=== PATIENT | female | born 1965 | race Caucasian/White ===

== ENCOUNTER 2017-12-21 09:45 | Outpatient (CLI) | payer OTHER ==
[~2017-12-21 09:45] MED LIST: MAGN400C PO; MULT-1179 PO
[2017-12-21 12:49] LABS: BASOPHILS # (AUTO) 0.1 X10'3 (0-0.2); BASOPHILS % (AUTO) 0.7 % (0-1); EOSINOPHILS # (AUTO) 0.1 X10'3 (0-0.9); EOSINOPHILS % (AUTO) 0.8 % (0-6); HEMATOCRIT 38.1 % (35.0-45.0); HEMOGLOBIN 13.3 g/dl (12.0-16.0); LYMPHOCYTES # (AUTO) 2.2 X10'3 (1.1-4.8); LYMPHOCYTES % (AUTO) 25.9 % (21-51); MEAN CORPUSCULAR HGB CONC 34.8 % (33.0-36.5); MEAN CORPUSCULAR VOLUME 91.9 FL (78-98); MEAN PLATELET VOLUME 8.4 FL (7.4-10.4); MONOCYTES # (AUTO) 0.5 X10'3 (0-0.9); NEUTROPHILS # (AUTO) 5.6 X10'3 (1.8-7.7); NEUTROPHILS % (AUTO) 66.6 % (42-75); PLATELET COUNT 289 X10'3 (140-440); RED BLOOD COUNT 4.14 X10'6 (4.20-5.60); RED CELL DISTRIBUTION WIDTH 12.9 % (11.5-14.5); WHITE BLOOD COUNT 8.5 X10'3 (4.5-11.0)
[2017-12-21 13:06] LABS: ALANINE AMINOTRANSFERASE 24 U/L (12-78); ALBUMIN 4.2 G/DL (3.4-5.0); ALBUMIN/GLOBULIN RATIO 1.1 (1.1-1.5); ALKALINE PHOSPHATASE 63 IU/L (46-116); ANION GAP 9 (8-16); ASPARTATE AMINO TRANSFERASE 22 U/L (10-37); BILIRUBIN,TOTAL 0.8 MG/DL (0.1-1.0); BLOOD UREA NITROGEN 19 MG/DL (7-18); BUN/CREATININE RATIO 22.4 (6.6-38.0); CALCIUM 9.3 MG/DL (8.5-10.1); CHLORIDE 103 MMOL/L (99-107); CREATININE 0.85 MG/DL (0.40-0.90); GLUCOSE 92 MG/DL (70-104); POTASSIUM 4.2 MMOL/L (3.5-5.1); SODIUM 139 MMOL/L (135-145); TOTAL CARBON DIOXIDE 27.5 MMOL/L (24-32); TOTAL PROTEIN 7.9 G/DL (6.4-8.2); eGFR 70 ML/MIN
== END 2017-12-21 23:59 | disposition home or self-care (01) ==
LOC: LAB 09:45
PROVIDERS: ATTEND Phlebology
DX: Z01.812 Encounter for preprocedural laboratory examination (principal); C50.311 Malignant neoplasm of lower-inner quadrant of right female breast
CPT/HCPCS: 36415; 71046; 80053; 85025

== ENCOUNTER 2017-12-25 08:41 | Outpatient (CLI) | payer OTHER | END 2017-12-25 23:59 | disposition home or self-care (01) | LOC: RAD 08:41 | PROVIDERS: ATTEND Phlebology | DX: C50.311 Malignant neoplasm of lower-inner quadrant of right female breast (principal) | CPT/HCPCS: 78306; A9503 ==

== ENCOUNTER 2018-01-21 12:11 | Outpatient (CLI) | payer OTHER ==
[2018-01-21 13:00] LABS: PARTIAL THROMBOPLASTIN TIME 25 SECONDS (22-32); PROTHROMBIN TIME 10.2 SECONDS (9.0-12.0)
[2018-01-21 13:08] LABS: ALANINE AMINOTRANSFERASE 31 U/L (12-78); ALBUMIN 4.2 G/DL (3.4-5.0); ALBUMIN/GLOBULIN RATIO 1.2 (1.1-1.5); ALKALINE PHOSPHATASE 58 IU/L (46-116); ANION GAP 7 (8-16); ASPARTATE AMINO TRANSFERASE 23 U/L (10-37); BILIRUBIN,TOTAL 0.6 MG/DL (0.1-1.0); BLOOD UREA NITROGEN 12 MG/DL (7-18); CALCIUM 9.1 MG/DL (8.5-10.1); CHLORIDE 103 MMOL/L (99-107); CREATININE 0.86 MG/DL (0.40-0.90); GLUCOSE 93 MG/DL (70-104); POTASSIUM 3.6 MMOL/L (3.5-5.1); SODIUM 139 MMOL/L (135-145); TOTAL CARBON DIOXIDE 29.2 MMOL/L (24-32); TOTAL PROTEIN 7.7 G/DL (6.4-8.2); eGFR 69 ML/MIN
[2018-01-21 13:20] LABS: BASOPHILS # (AUTO) 0.1 X10'3 (0-0.2); BASOPHILS % (AUTO) 0.9 % (0-1); EOSINOPHILS # (AUTO) 0.1 X10'3 (0-0.9); EOSINOPHILS % (AUTO) 1.8 % (0-6); HEMOGLOBIN 12.9 g/dl (12.0-16.0); LYMPHOCYTES # (AUTO) 2.7 X10'3 (1.1-4.8); LYMPHOCYTES % (AUTO) 41.4 % (21-51); MEAN CORPUSCULAR HEMOGLOBIN 31.9 PG (27.0-31.0); MEAN CORPUSCULAR HGB CONC 34.8 % (33.0-36.5); MEAN CORPUSCULAR VOLUME 91.7 FL (78-98); MEAN PLATELET VOLUME 8.5 FL (7.4-10.4); MONOCYTES # (AUTO) 0.5 X10'3 (0-0.9); MONOCYTES % (AUTO) 7.6 % (2-12); NEUTROPHILS # (AUTO) 3.2 X10'3 (1.8-7.7); NEUTROPHILS % (AUTO) 48.3 % (42-75); PLATELET COUNT 270 X10'3 (140-440); RED BLOOD COUNT 4.04 X10'6 (4.20-5.60); RED CELL DISTRIBUTION WIDTH 12.8 % (11.5-14.5); WHITE BLOOD COUNT 6.6 X10'3 (4.5-11.0)
== END 2018-01-21 23:59 | disposition home or self-care (01) ==
LOC: LAB 12:11
PROVIDERS: ATTEND Family Medicine
DX: Z00.01 Encounter for general adult medical examination with abnormal findings (principal)
CPT/HCPCS: 36415; 80053; 85025; 85610; 85730

== ENCOUNTER 2018-04-03 07:51 | Outpatient (CLI) | payer OTHER ==
[2018-04-03 08:41] LABS: ALANINE AMINOTRANSFERASE 23 U/L (12-78); ALBUMIN 4.2 G/DL (3.4-5.0); ALBUMIN/GLOBULIN RATIO 1.3 (1.1-1.5); ALKALINE PHOSPHATASE 62 IU/L (46-116); ANION GAP 12 (8-16); ASPARTATE AMINO TRANSFERASE 20 U/L (10-37); BILIRUBIN,TOTAL 0.5 MG/DL (0.1-1.0); BLOOD UREA NITROGEN 12 MG/DL (7-18); BUN/CREATININE RATIO 14.6 (6.6-38.0); CALCIUM 8.9 MG/DL (8.5-10.1); CHLORIDE 100 MMOL/L (99-107); CREATININE 0.82 MG/DL (0.40-0.90); GLUCOSE 97 MG/DL (70-104); MAGNESIUM 1.6 MG/DL (1.5-2.4); POTASSIUM 4.1 MMOL/L (3.5-5.1); SODIUM 139 MMOL/L (135-145); TOTAL CARBON DIOXIDE 27.2 MMOL/L (24-32); TOTAL PROTEIN 7.5 G/DL (6.4-8.2); eGFR 73 ML/MIN
[2018-04-03 11:13] LABS: BASOPHILS % (AUTO) 0.5 % (0-1); EOSINOPHILS # (AUTO) 0.1 X10'3 (0-0.9); EOSINOPHILS % (AUTO) 1.1 % (0-6); HEMATOCRIT 35.9 % (35.0-45.0); HEMOGLOBIN 12.3 g/dl (12.0-16.0); LYMPHOCYTES % (AUTO) 29.5 % (21-51); MEAN CORPUSCULAR HEMOGLOBIN 29.4 PG (27.0-31.0); MEAN CORPUSCULAR HGB CONC 34.2 % (33.0-36.5); MEAN CORPUSCULAR VOLUME 85.9 FL (78-98); MEAN PLATELET VOLUME 8.2 FL (7.4-10.4); MONOCYTES # (AUTO) 0.6 X10'3 (0-0.9); MONOCYTES % (AUTO) 8.2 % (2-12); NEUTROPHILS # (AUTO) 4.1 X10'3 (1.8-7.7); NEUTROPHILS % (AUTO) 60.7 % (42-75); PLATELET COUNT 323 X10'3 (140-440); RED BLOOD COUNT 4.17 X10'6 (4.20-5.60); RED CELL DISTRIBUTION WIDTH 14.8 % (11.5-14.5); WHITE BLOOD COUNT 6.8 X10'3 (4.5-11.0)
[2018-04-04 13:24] LABS: CA 27.29 18.5 U/mL (0.0-38.6)
== END 2018-04-03 23:59 | disposition home or self-care (01) ==
LOC: LAB 07:51
PROVIDERS: ATTEND Internal Medicine Hematology & Oncology
DX: C50.919 Malignant neoplasm of unspecified site of unspecified female breast (principal)
CPT/HCPCS: 36415; 80053; 83735; 85025; 86300

== ENCOUNTER 2018-05-20 09:53 | Outpatient (CLI) | payer OTHER ==
[2018-05-20 10:58] LABS: BASOPHILS % (AUTO) 0.5 % (0-1); EOSINOPHILS # (AUTO) 0.1 X10'3 (0-0.9); EOSINOPHILS % (AUTO) 1.6 % (0-6); HEMOGLOBIN 12.9 g/dl (12.0-16.0); LYMPHOCYTES # (AUTO) 1.6 X10'3 (1.1-4.8); LYMPHOCYTES % (AUTO) 23.6 % (21-51); MEAN CORPUSCULAR HEMOGLOBIN 29.5 PG (27.0-31.0); MEAN CORPUSCULAR HGB CONC 33.1 % (33.0-36.5); MEAN CORPUSCULAR VOLUME 88.9 FL (78-98); MEAN PLATELET VOLUME 8.5 FL (7.4-10.4); MONOCYTES # (AUTO) 0.4 X10'3 (0-0.9); MONOCYTES % (AUTO) 6.2 % (2-12); NEUTROPHILS # (AUTO) 4.7 X10'3 (1.8-7.7); NEUTROPHILS % (AUTO) 68.1 % (42-75); PLATELET COUNT 345 X10'3 (140-440); RED BLOOD COUNT 4.38 X10'6 (4.20-5.60); RED CELL DISTRIBUTION WIDTH 14.3 % (11.5-14.5); WHITE BLOOD COUNT 6.8 X10'3 (4.5-11.0)
[2018-05-20 11:13] LABS: ALBUMIN 3.9 G/DL (3.4-5.0); ANION GAP 8 (8-16); BLOOD UREA NITROGEN 8 MG/DL (7-18); BUN/CREATININE RATIO 9.1 (6.6-38.0); CALCIUM 9.5 MG/DL (8.5-10.1); CHLORIDE 103 MMOL/L (99-107); CREATININE 0.88 MG/DL (0.40-0.90); GLUCOSE 98 MG/DL (70-104); SODIUM 142 MMOL/L (135-145); TOTAL CARBON DIOXIDE 31.1 MMOL/L (24-32); eGFR 67 ML/MIN
[2018-05-20 11:21] LABS: PARTIAL THROMBOPLASTIN TIME 27 SECONDS (22-32); PROTHROMBIN TIME 10.6 SECONDS (9.0-12.0)
== END 2018-05-20 23:59 | disposition home or self-care (01) ==
LOC: LAB 09:53
PROVIDERS: ATTEND Family Medicine
DX: C50.912 Malignant neoplasm of unspecified site of left female breast (principal); Z90.13 Acquired absence of bilateral breasts and nipples
CPT/HCPCS: 36415; 80048; 85025; 85610; 85730

== ENCOUNTER 2018-12-05 08:30 | Outpatient (CLI) | payer OTHER ==
[2018-12-05 10:01] LABS: BASOPHILS # (AUTO) 0.1 X10'3 (0-0.2); BASOPHILS % (AUTO) 1.3 % (0-1); EOSINOPHILS # (AUTO) 0.1 X10'3 (0-0.9); EOSINOPHILS % (AUTO) 1.6 % (0-6); HEMATOCRIT 38.6 % (35.0-45.0); LYMPHOCYTES # (AUTO) 2.1 X10'3 (1.1-4.8); LYMPHOCYTES % (AUTO) 34.2 % (21-51); MEAN CORPUSCULAR HEMOGLOBIN 31.1 PG (27.0-31.0); MEAN CORPUSCULAR HGB CONC 33.8 g/dL (33.0-36.5); MEAN CORPUSCULAR VOLUME 92.2 FL (78-98); MEAN PLATELET VOLUME 8.5 FL (7.4-10.4); MONOCYTES # (AUTO) 0.5 X10'3 (0-0.9); MONOCYTES % (AUTO) 8.6 % (2-12); NEUTROPHILS # (AUTO) 3.3 X10'3 (1.8-7.7); NEUTROPHILS % (AUTO) 54.3 % (42-75); PLATELET COUNT 322 X10'3 (140-440); RED BLOOD COUNT 4.19 X10'6 (4.20-5.60); RED CELL DISTRIBUTION WIDTH 12.7 % (11.5-14.5); WHITE BLOOD COUNT 6.1 X10'3 (4.5-11.0)
[2018-12-05 10:05] LABS: ALBUMIN 4.1 G/DL (3.4-5.0); ANION GAP 9 (8-16); BLOOD UREA NITROGEN 14 MG/DL (7-18); BUN/CREATININE RATIO 15.1 (6.6-38.0); CALCIUM 9.3 MG/DL (8.5-10.1); CHLORIDE 103 MMOL/L (99-107); CREATININE 0.93 MG/DL (0.40-0.90); GLUCOSE 84 MG/DL (70-104); POTASSIUM 3.9 MMOL/L (3.5-5.1); SODIUM 140 MMOL/L (135-145); TOTAL CARBON DIOXIDE 27.9 MMOL/L (24-32); eGFR 63 ML/MIN
[2018-12-05 10:10] LABS: PARTIAL THROMBOPLASTIN TIME 26 SECONDS (22-32)
== END 2018-12-05 23:59 | disposition home or self-care (01) ==
LOC: LAB 08:30
PROVIDERS: ATTEND Family Medicine
DX: Z00.01 Encounter for general adult medical examination with abnormal findings (principal); C50.912 Malignant neoplasm of unspecified site of left female breast; R07.9 Chest pain, unspecified; R91.8 Other nonspecific abnormal finding of lung field; E55.9 Vitamin D deficiency, unspecified; Z90.13 Acquired absence of bilateral breasts and nipples
CPT/HCPCS: 36415; 71046; 71260; 80048; 82306; 85025; 85610; 85730; Q9967

== ENCOUNTER 2020-07-27 09:53 | Outpatient (CLI) | payer BC ==
[2020-07-27 10:34] LABS: BASOPHILS # (AUTO) 0.1 X10'3 (0-0.2); BASOPHILS % (AUTO) 1.2 % (0-1); EOSINOPHILS # (AUTO) 0.1 X10'3 (0-0.9); EOSINOPHILS % (AUTO) 1.4 % (0-6); HEMATOCRIT 39.1 % (35.0-45.0); LYMPHOCYTES # (AUTO) 1.8 X10'3 (1.1-4.8); LYMPHOCYTES % (AUTO) 32.7 % (21-51); MEAN CORPUSCULAR HEMOGLOBIN 30.5 PG (27.0-31.0); MEAN CORPUSCULAR HGB CONC 33.3 g/dL (33.0-36.5); MEAN CORPUSCULAR VOLUME 91.6 FL (78-98); MEAN PLATELET VOLUME 8.3 FL (7.4-10.4); MONOCYTES # (AUTO) 0.4 X10'3 (0-0.9); MONOCYTES % (AUTO) 7.4 % (2-12); NEUTROPHILS # (AUTO) 3.1 X10'3 (1.8-7.7); NEUTROPHILS % (AUTO) 57.3 % (42-75); PLATELET COUNT 301 X10'3 (140-440); RED BLOOD COUNT 4.27 X10'6 (4.20-5.60); RED CELL DISTRIBUTION WIDTH 12.3 % (11.5-14.5); WHITE BLOOD COUNT 5.4 X10'3 (4.5-11.0)
[2020-07-27 10:44] LABS: CLARITY,URINE CLEAR (Clear); COLOR,URINE YELLOW (Yellow); GLUCOSE, URINE NEGATIVE (Neg); KETONES,URINE TRACE mg/dl (Neg); LEUKOCYTE ESTERASE ,URINE TRACE (Neg); NITRITES, URINE NEGATIVE (Neg); OCCULT BLOOD,URINE NEGATIVE (Neg); PROTEIN,URINE NEGATIVE (Neg); UROBILINOGEN,URINE 0.2 E.U/dL (0.2-1.0)
[2020-07-27 10:49] LABS: UA COLLECTION TYPE CLN CATCH MIDSTREAM
[2020-07-27 10:53] LABS: BACTERIA,URINE NONE SEEN /HPF (Neg); MUCUS STRANDS NONE SEEN /LPF (Neg); RBC,URINE NONE SEEN /HPF (0-2); SQUAMOUS EPITHELIAL CELL,UR FEW /LPF (FEW); WBC,URINE 0-4 /HPF (0-4)
[2020-07-27 11:11] LABS: ALANINE AMINOTRANSFERASE 27 U/L (12-78); ALBUMIN 4.1 G/DL (3.4-5.0); ALBUMIN/GLOBULIN RATIO 1.2 (1.1-1.5); ALKALINE PHOSPHATASE 60 IU/L (46-116); ANION GAP 7 (8-16); ASPARTATE AMINO TRANSFERASE 22 U/L (10-37); BILIRUBIN,TOTAL 0.6 MG/DL (0.1-1.0); BLOOD UREA NITROGEN 15 MG/DL (7-18); BUN/CREATININE RATIO 16.9 (6.6-38.0); CALCIUM 9.1 MG/DL (8.5-10.1); CHLORIDE 105 MMOL/L (99-107); CHOL/HDL RATIO 2.9 (0.00-4.99); CHOLESTEROL 209 MG/DL (0-200); CREATININE 0.89 MG/DL (0.40-0.90); GLUCOSE 97 MG/DL (70-104); HDL CHOLESTEROL 73 MG/DL (35-60); LDL CHOLESTEROL 114 MG/DL (50-100); SODIUM 142 MMOL/L (135-145); TOTAL CARBON DIOXIDE 30.4 MMOL/L (24-32); TOTAL PROTEIN 7.6 G/DL (6.4-8.2); TRIGLYCERIDES 54 MG/DL (20-135); eGFR 66 ML/MIN
== END 2020-07-27 23:59 | disposition home or self-care (01) ==
LOC: LAB 09:53
PROVIDERS: ATTEND Family Medicine
DX: Z00.01 Encounter for general adult medical examination with abnormal findings (principal)
CPT/HCPCS: 36415; 80053; 80061; 81001; 84439; 84443; 85025

== ENCOUNTER 2020-07-28 08:51 | Outpatient (CLI) | payer BC | END 2020-07-28 23:59 | disposition home or self-care (01) | LOC: RAD 08:51 | PROVIDERS: ATTEND Family Medicine | DX: G43.919 Migraine, unspecified, intractable, without status migrainosus (principal) | CPT/HCPCS: 70551 ==

== ENCOUNTER 2020-08-24 09:03 | Outpatient (CLI) | payer BC | END 2020-08-24 23:59 | disposition home or self-care (01) | LOC: LAB 09:03 | PROVIDERS: ATTEND Neurological Surgery | DX: B00.82 Herpes simplex myelitis (principal) | CPT/HCPCS: 87252 ==

== ENCOUNTER 2020-09-17 08:47 | Day surgery (SDC) | payer BC ==
[~2020-09-17] VITALS: Ht 177.8 cm; Wt 77.3 kg
[2020-09-17 08:56] VITALS: BP 150/99
[2020-09-17] MEDS ORDERED: fentaNYL/PF 50MCG/1 ML 2ML syringe ONE (09:10)
[2020-09-17] MEDS ORDERED: MIDAZolam 1 MG/ML 5ML VIAL ONE (09:10)
[2020-09-17] MEDS ORDERED: TAMO20TA4 PO (09:26)
[2020-09-17] MEDS ORDERED: ASPI-611 PO (09:27)
[2020-09-17] MEDS ORDERED: OMEP20TA23 PO (09:28)
[2020-09-17] MEDS ORDERED: VITAMIN D PO (09:28)
[2020-09-17 10:25] VITALS: BP 124/75
[2020-09-17 10:35] VITALS: BP 116/78
[2020-09-17 10:45] VITALS: BP 125/72
== END 2020-09-17 10:55 | disposition home or self-care (01) ==
LOC: GI LAB 08:47
PROVIDERS: ATTEND Internal Medicine Gastroenterology
DX: Z12.11 Encounter for screening for malignant neoplasm of colon (principal); K63.5 Polyp of colon; K57.30 Diverticulosis of large intestine without perforation or abscess without bleeding; K64.8 Other hemorrhoids; Z85.3 Personal history of malignant neoplasm of breast; Z79.899 Other long term (current) drug therapy
CPT/HCPCS: 45385; 99152; 99153; C1773; J2250; J3010; J7040; A4620

== ENCOUNTER 2021-12-06 08:52 | Outpatient (CLI) | payer BC ==
[~2021-12-06 08:52] MED LIST changes: +ASPI-611 PO; +OMEP20TA23 PO; +TAMO20TA4 PO; +VITAMIN D PO
[2021-12-06 09:28] LABS: CLARITY,URINE CLEAR (Clear); COLOR,URINE YELLOW (Yellow); GLUCOSE, URINE NEGATIVE (Neg); KETONES,URINE NEGATIVE (Neg); LEUKOCYTE ESTERASE ,URINE NEGATIVE (Neg); NITRITES, URINE NEGATIVE (Neg); OCCULT BLOOD,URINE NEGATIVE (Neg); PROTEIN,URINE NEGATIVE (Neg); UROBILINOGEN,URINE 0.2 E.U/dL (0.2-1.0)
[2021-12-06 09:31] LABS: UA COLLECTION TYPE CLN CATCH MIDSTREAM
[2021-12-06 09:33] LABS: BASOPHILS # (AUTO) 0.1 X10'3 (0-0.2); BASOPHILS % (AUTO) 1.2 % (0-1); EOSINOPHILS # (AUTO) 0.1 X10'3 (0-0.9); EOSINOPHILS % (AUTO) 0.9 % (0-6); HEMATOCRIT 42.5 % (35.0-45.0); HEMOGLOBIN 14.2 g/dl (12.0-16.0); LYMPHOCYTES # (AUTO) 1.3 X10'3 (1.1-4.8); LYMPHOCYTES % (AUTO) 23.9 % (21-51); MEAN CORPUSCULAR HEMOGLOBIN 30.7 PG (27.0-31.0); MEAN CORPUSCULAR HGB CONC 33.4 g/dL (33.0-36.5); MEAN PLATELET VOLUME 8.3 FL (7.4-10.4); MONOCYTES # (AUTO) 0.6 X10'3 (0-0.9); MONOCYTES % (AUTO) 11.7 % (2-12); NEUTROPHILS # (AUTO) 3.4 X10'3 (1.8-7.7); NEUTROPHILS % (AUTO) 62.3 % (42-75); PLATELET COUNT 309 X10'3 (140-440); RED BLOOD COUNT 4.62 X10'6 (4.20-5.60); RED CELL DISTRIBUTION WIDTH 12.7 % (11.5-14.5); WHITE BLOOD COUNT 5.4 X10'3 (4.5-11.0)
[2021-12-06 09:56] LABS: ALANINE AMINOTRANSFERASE 25 U/L (12-78); ALBUMIN 4.3 G/DL (3.4-5.0); ALBUMIN/GLOBULIN RATIO 1.2 (1.1-1.5); ALKALINE PHOSPHATASE 85 IU/L (46-116); ANION GAP 8 (8-16); ASPARTATE AMINO TRANSFERASE 29 U/L (10-37); BILIRUBIN,TOTAL 0.4 MG/DL (0.1-1.0); BLOOD UREA NITROGEN 14 MG/DL (7-18); BUN/CREATININE RATIO 17.7 (6.6-38.0); CALCIUM 9.8 MG/DL (8.5-10.1); CHLORIDE 103 MMOL/L (99-107); CHOL/HDL RATIO 2.9 (0.00-4.99); CHOLESTEROL 251 MG/DL (0-200); CREATININE 0.79 MG/DL (0.40-0.90); GLUCOSE 104 MG/DL (70-104); HDL CHOLESTEROL 86 MG/DL (35-60); LDL CHOLESTEROL 137 MG/DL (50-100); POTASSIUM 4.1 MMOL/L (3.5-5.1); SODIUM 140 MMOL/L (135-145); TOTAL CARBON DIOXIDE 29.4 MMOL/L (24-32); TRIGLYCERIDES 66 MG/DL (20-135); eGFR 75 ML/MIN
== END 2021-12-06 23:59 | disposition home or self-care (01) ==
LOC: LAB 08:52
PROVIDERS: ATTEND Family Medicine
DX: Z00.00 Encounter for general adult medical examination without abnormal findings (principal)
CPT/HCPCS: 36415; 80053; 80061; 81003; 84439; 84443; 85025

== ENCOUNTER 2022-03-15 09:14 | Outpatient (CLI) | payer BC ==
[2022-03-15 09:58] LABS: CHOL/HDL RATIO 2.4 (0.00-4.99); CHOLESTEROL 252 MG/DL (0-200); HDL CHOLESTEROL 106 MG/DL (35-60); LDL CHOLESTEROL 117 MG/DL (50-100); TRIGLYCERIDES 56 MG/DL (20-135)
== END 2022-03-15 23:59 | disposition home or self-care (01) ==
LOC: LAB 09:14
PROVIDERS: ATTEND Family Medicine
DX: E78.49 Other hyperlipidemia (principal)
CPT/HCPCS: 36415; 80061

== ENCOUNTER 2023-04-26 11:28 | Outpatient (CLI) | payer BC ==
[2023-04-26 12:30] LABS: BASOPHILS # (AUTO) 0.1 X10'3 (0-0.2); BASOPHILS % (AUTO) 1.2 % (0-1); EOSINOPHILS # (AUTO) 0.2 X10'3 (0-0.9); EOSINOPHILS % (AUTO) 2.7 % (0-6); HEMATOCRIT 41.2 % (35.0-45.0); HEMOGLOBIN 13.6 g/dl (12.0-16.0); LYMPHOCYTES # (AUTO) 2.3 X10'3 (1.1-4.8); MEAN CORPUSCULAR HEMOGLOBIN 30.4 PG (27.0-31.0); MEAN CORPUSCULAR VOLUME 92.1 FL (78-98); MEAN PLATELET VOLUME 8.9 FL (7.4-10.4); MONOCYTES # (AUTO) 0.6 X10'3 (0-0.9); MONOCYTES % (AUTO) 9.7 % (2-12); NEUTROPHILS # (AUTO) 2.8 X10'3 (1.8-7.7); NEUTROPHILS % (AUTO) 47.4 % (42-75); PLATELET COUNT 302 X10'3 (140-440); RED BLOOD COUNT 4.48 X10'6 (4.20-5.60); RED CELL DISTRIBUTION WIDTH 13.1 % (11.5-14.5)
[2023-04-26 12:32] LABS: ALBUMIN 4.2 G/DL (3.4-5.0); ANION GAP 11 (8-16); BLOOD UREA NITROGEN 15 MG/DL (7-18); BUN/CREATININE RATIO 16.3 (10.0-20.0); CALCIUM 9.5 MG/DL (8.5-10.1); CHLORIDE 103 MMOL/L (99-107); CREATININE 0.92 MG/DL (0.40-0.90); GLUCOSE 121 MG/DL (70-104); SODIUM 140 MMOL/L (135-145); TOTAL CARBON DIOXIDE 25.9 MMOL/L (24-32); eGFR 63 ML/MIN
== END 2023-04-26 23:59 | disposition home or self-care (01) ==
LOC: LAB 11:28
PROVIDERS: ATTEND Physician Assistant Surgical
DX: Z01.812 Encounter for preprocedural laboratory examination (principal)
CPT/HCPCS: 36415; 80048; 85025

== ENCOUNTER 2023-12-05 09:36 | Outpatient (CLI) | payer BC ==
[2023-12-05 10:31] LABS: BILIRUBIN,URINE NEGATIVE (Neg); CLARITY,URINE CLEAR (Clear); COLOR,URINE YELLOW (Yellow); GLUCOSE, URINE NEGATIVE (Neg); KETONES,URINE NEGATIVE (Neg); LEUKOCYTE ESTERASE ,URINE NEGATIVE (Neg); NITRITES, URINE NEGATIVE (Neg); OCCULT BLOOD,URINE NEGATIVE (Neg); PROTEIN,URINE NEGATIVE (Neg); UROBILINOGEN,URINE 0.2 E.U/dL (0.2-1.0)
[2023-12-05 10:32] LABS: BASOPHILS # (AUTO) 0.1 X10'3 (0-0.2); BASOPHILS % (AUTO) 1.4 % (0-1); EOSINOPHILS # (AUTO) 0.2 X10'3 (0-0.9); EOSINOPHILS % (AUTO) 3.8 % (0-6); HEMATOCRIT 40.8 % (35.0-45.0); HEMOGLOBIN 13.7 g/dl (12.0-16.0); LYMPHOCYTES # (AUTO) 1.9 X10'3 (1.1-4.8); LYMPHOCYTES % (AUTO) 32.9 % (21-51); MEAN CORPUSCULAR HEMOGLOBIN 31.2 PG (27.0-31.0); MEAN CORPUSCULAR HGB CONC 33.6 g/dL (33.0-36.5); MEAN CORPUSCULAR VOLUME 92.9 FL (78-98); MEAN PLATELET VOLUME 8.2 FL (7.4-10.4); MONOCYTES # (AUTO) 0.5 X10'3 (0-0.9); MONOCYTES % (AUTO) 9.4 % (2-12); NEUTROPHILS % (AUTO) 52.5 % (42-75); PLATELET COUNT 364 X10'3 (140-440); RED CELL DISTRIBUTION WIDTH 14.7 % (11.5-14.5); WHITE BLOOD COUNT 5.8 X10'3 (4.5-11.0)
[2023-12-05 10:37] LABS: UA COLLECTION TYPE CLN CATCH MIDSTREAM
[2023-12-05 10:53] LABS: ALANINE AMINOTRANSFERASE 38 U/L (12-78); ALBUMIN 4.3 G/DL (3.4-5.0); ALKALINE PHOSPHATASE 95 IU/L (46-116); ANION GAP 8 (8-16); ASPARTATE AMINO TRANSFERASE 25 U/L (10-37); BILIRUBIN,TOTAL 0.7 MG/DL (0.1-1.0); BLOOD UREA NITROGEN 12 MG/DL (7-18); BUN/CREATININE RATIO 17.6 (10.0-20.0); CALCIUM 9.1 MG/DL (8.5-10.1); CHLORIDE 102 MMOL/L (99-107); CHOL/HDL RATIO 3.2 (0.00-4.99); CHOLESTEROL 324 MG/DL (0-200); CREATININE 0.68 MG/DL (0.40-0.90); GLUCOSE 106 MG/DL (70-104); HDL CHOLESTEROL 100 MG/DL (35-60); LDL CHOLESTEROL 201 MG/DL (50-100); POTASSIUM 3.9 MMOL/L (3.5-5.1); SODIUM 137 MMOL/L (135-145); THYROID STIMULATING HORMONE 0.75 ulU/ml (0.34-4.50); TOTAL CARBON DIOXIDE 27.4 MMOL/L (24-32); TOTAL PROTEIN 8.5 G/DL (6.4-8.2); TRIGLYCERIDES 81 MG/DL (20-135); eGFR 89 ML/MIN
== END 2023-12-05 23:59 | disposition home or self-care (01) ==
LOC: RAD 09:36
PROVIDERS: ATTEND Family Medicine
DX: Z00.01 Encounter for general adult medical examination with abnormal findings (principal)
CPT/HCPCS: 36415; 80053; 80061; 81003; 84436; 84443; 85025

== ENCOUNTER 2024-06-10 09:43 | Outpatient (CLI) | payer BC ==
[2024-06-10 11:25] LABS: BILIRUBIN,URINE NEGATIVE (Neg); CLARITY,URINE SLIGHTLY CLOUDY (Clear); COLOR,URINE YELLOW (Yellow); GLUCOSE, URINE NEGATIVE (Neg); KETONES,URINE TRACE mg/dl (Neg); LEUKOCYTE ESTERASE ,URINE NEGATIVE (Neg); NITRITES, URINE NEGATIVE (Neg); OCCULT BLOOD,URINE NEGATIVE (Neg); PROTEIN,URINE NEGATIVE (Neg); UROBILINOGEN,URINE 0.2 E.U/dL (0.2-1.0)
[2024-06-10 11:34] LABS: BACTERIA,URINE 1+ /HPF (Neg); BASOPHILS # (AUTO) 0.1 X10'3 (0-0.2); BASOPHILS % (AUTO) 1.2 % (0-1); EOSINOPHILS # (AUTO) 0.1 X10'3 (0-0.9); EOSINOPHILS % (AUTO) 2.6 % (0-6); HEMATOCRIT 40.8 % (35.0-45.0); HEMOGLOBIN 13.7 g/dl (12.0-16.0); LYMPHOCYTES # (AUTO) 1.7 X10'3 (1.1-4.8); LYMPHOCYTES % (AUTO) 33.6 % (21-51); MEAN CORPUSCULAR HEMOGLOBIN 31.3 PG (27.0-31.0); MEAN CORPUSCULAR HGB CONC 33.6 g/dL (33.0-36.5); MEAN CORPUSCULAR VOLUME 93.3 FL (78-98); MEAN PLATELET VOLUME 8.4 FL (7.4-10.4); MONOCYTES # (AUTO) 0.6 X10'3 (0-0.9); MONOCYTES % (AUTO) 11.1 % (2-12); MUCUS STRANDS MODERATE /LPF (Neg); NEUTROPHILS # (AUTO) 2.6 X10'3 (1.8-7.7); NEUTROPHILS % (AUTO) 51.5 % (42-75); PLATELET COUNT 327 X10'3 (140-440); RBC,URINE 0-2 /HPF (0-2); RED BLOOD COUNT 4.37 X10'6 (4.20-5.60); RED CELL DISTRIBUTION WIDTH 12.9 % (11.5-14.5); SQUAMOUS EPITHELIAL CELL,UR MANY /LPF (FEW); UA COLLECTION TYPE CLN CATCH MIDSTREAM; WBC,URINE 0-4 /HPF (0-4)
[2024-06-10 11:46] LABS: ALANINE AMINOTRANSFERASE 36 U/L (12-78); ALBUMIN 4.3 G/DL (3.4-5.0); ALBUMIN/GLOBULIN RATIO 1.2 (1.1-1.5); ALKALINE PHOSPHATASE 87 IU/L (46-116); ANION GAP 10 (8-16); ASPARTATE AMINO TRANSFERASE 26 U/L (10-37); BILIRUBIN,TOTAL 0.7 MG/DL (0.1-1.0); BLOOD UREA NITROGEN 14 MG/DL (7-18); BUN/CREATININE RATIO 14.7 (10.0-20.0); CALCIUM 8.7 MG/DL (8.5-10.1); CHLORIDE 102 MMOL/L (99-107); CREATININE 0.95 MG/DL (0.40-0.90); GLUCOSE 122 MG/DL (70-104); POTASSIUM 4.2 MMOL/L (3.5-5.1); SODIUM 138 MMOL/L (135-145); TOTAL CARBON DIOXIDE 26.3 MMOL/L (24-32); eGFR 60 ML/MIN
[2024-06-10 11:56] LABS: CHOL/HDL RATIO 2.9 (0.00-4.99); CHOLESTEROL 277 MG/DL (0-200); FREE T4 (FREE THYROXINE) 0.78 NG/DL (0.73-1.40); HDL CHOLESTEROL 96 MG/DL (35-60); LDL CHOLESTEROL 159 MG/DL (50-100); THYROID STIMULATING HORMONE 0.85 ulU/ml (0.34-4.50); TRIGLYCERIDES 62 MG/DL (20-135)
== END 2024-06-10 23:59 | disposition home or self-care (01) ==
LOC: LAB 09:43
PROVIDERS: ATTEND Family Medicine
DX: I10 Essential (primary) hypertension (principal); E78.49 Other hyperlipidemia; R53.83 Other fatigue; R30.0 Dysuria
CPT/HCPCS: 36415; 80053; 80061; 81001; 84439; 84443; 85025

== ENCOUNTER 2025-04-16 12:20 | Outpatient (CLI) | payer BC ==
[2025-04-16 12:56] LABS: CHOL/HDL RATIO 1.9 (0.00-4.99); CREATININE 0.87 MG/DL (0.40-0.90); LDL CHOLESTEROL 58 MG/DL (50-100); TOTAL CARBON DIOXIDE 29.2 MMOL/L (24-32); eGFR 67 ML/MIN
== END 2025-04-16 23:59 | disposition home or self-care (01) ==
LOC: LAB 12:20
PROVIDERS: ATTEND Student in an Organized Health Care Education/Training Program
DX: I10 Essential (primary) hypertension (principal); E78.5 Hyperlipidemia, unspecified
CPT/HCPCS: 36415; 80053; 80061

== ENCOUNTER 2025-05-25 15:13 | Outpatient (CLI) | payer BC ==
--- NOTE | 2025-05-25 16:38 | RADIOLOGY REPORT ---
Exam: CT CT CHEST Reason for study/Clinical History: INCREASING SHORTNESS OF BREATH Comparison Study: None Exam Date: 05/25/2025 03:34 PM TECHNIQUE: Multidetector CT of the chest was performed from the lung apices to the upper abdomen without the use of intravenous contract. Axial, coronal and sagittal multiplanar reformats were performed. Radiation Dose Information: CT Dose: CTDI volume is 15 mGy. Dose-length product is 485 mGy*cm The dose indicators for CT are the volume Computed Tomography (CT) Dose Index (CTDIvol) and the Dose Length Product (DLP), and are measured in units of mGy and mGy-cm, respectively. These indicators are not patient dose, but values generated from the CT scanner acquisition factors. The report includes radiation exposure data for exposures received during this examination. Findings: Lower neck: Unremarkable. Lungs and Pleura: Diffuse bronchial wall thickening. Small bilateral pleural effusions. Patchy lower lung predominant opacities with septal thickening 1.7 cm ground-glass left upper lobe ground-glass nodule (image 21, series 3). Lymph nodes: Asymmetric Ill-defined and irregular soft tissue density in the right axillary region measuring approximatley 2.6 cm in maximum axial dimenions. No mediastinal adenopathy. Cardiovascular and Mediastinum: No significant pericardial effusion. Scattered coronary calcifications. Osseous and soft tissues: Multiple sclerotic foci in the thoracic spine suggestive of metastatic disease. No associated pathologic fracture. Bilateral breast implants. Upper abdomen: No acute abnormality in the visualized upper abdomen. IMPRESSION: Small bilateral pleural effusions. Patchy lower lung predominant opacities with septal thickening likely relate to atelectasis and/or edema but superimposed infection is possible in the appropriate clinical setting. 1.7 cm ground-glass left upper lobe ground-glass nodule. Follow-up CT chest in 3 months is recommended. Multiple sclerotic foci in the thoracic spine suggestive of metastatic disease. Asymmetric Ill-defined and irregular soft tissue density in the right axillary region. Metastatic adenopathy is a possibility. Recommend correlation with clinical history and consider PET/CT for further evaluation.
== END 2025-05-25 23:59 | disposition home or self-care (01) ==
LOC: RAD 15:13
PROVIDERS: ATTEND Student in an Organized Health Care Education/Training Program
DX: J90 Pleural effusion, not elsewhere classified (principal); R91.1 Solitary pulmonary nodule; R06.02 Shortness of breath; J98.4 Other disorders of lung
CPT/HCPCS: 71250

== ENCOUNTER 2025-06-03 08:29 | Outpatient (CLI) | payer BC ==
[~2025-06-03 08:29] MED LIST changes: +GADOTERATE MEGLUMINE 7.5 MMOL/15 ML VIAL IV ONE
[2025-06-03 09:34] LABS: MEAN PLATELET VOLUME 9.2 FL (7.4-10.4); RED CELL DISTRIBUTION WIDTH 13.2 % (11.5-14.5)
--- NOTE | 2025-06-03 10:49 | RADIOLOGY REPORT ---
Exam: US US NON VASCULAR Date: 06/03/2025 10:01 AM Clinical History: SECONDARY MALIGNANT NEOPLASM OF BONE MARROW Comparison: None Technique: Targeted sonographic evaluation of the soft tissues of the right axilla was obtained utilizing grayscale and color Doppler imaging. Findings: There is no evidence for drainable collection. There is no evidence for solid or cystic mass in the site. No vascular abnormalities identified at this site. IMPRESSION: No definite sonographic abnormality is identified in the soft tissues of the right axilla. Possible lymph node in the right axilla with preserved fatty hilum measuring 0.8 cm in short axis.
--- NOTE | 2025-06-03 14:11 | RADIOLOGY REPORT ---
EXAM: MR MRI C SPINE CLINICAL HISTORY: SECONDARY MALIGNANT NEOPLASM OF BONE MARROW COMPARISON: None Technique: MRI of the cervical spine was performed with and without contrast. 15 cc of IV contrast was administered. Findings: Vertebral body height is preserved. Mild retrolisthesis of C5 and C6. Degenerate endplate changes. T1 and T2 hypointense lesions in the C4 and C6 vertebral bodies without associated enhancement or edema. No spinal cord edema. No abnormal enhancement within the spinal canal. C2-3: No significant spinal canal or foraminal stenosis. C3-4: No significant spinal canal or foraminal stenosis. C4-5: Disc bulge with uncovertebral hypertrophy. Severe right and moderate left foraminal stenosis. No significant spinal canal narrowing. C5-6: Disc bulge with uncovertebral hypertrophy. Moderate to severe bilateral foraminal stenosis. Mild spinal canal narrowing. C6-7: Disc bulge with facet arthropathy and uncovertebral hypertrophy. Mild right and severe left foraminal stenosis. No significant spinal canal narrowing. C7-T1: No significant spinal canal or foraminal stenosis. The paraspinal tissues are unremarkable. IMPRESSION: No acute fracture. Multilevel degenerate changes. Small T1 and T2 hypointense lesions in C4 and C6 vertebral bodies. No associated enhancement or edema. These are nonspecific and favored to represent bone islands. Metastatic lesions are less likely although sclerotic metastatic lesions can have similar appearance.
--- NOTE | 2025-06-03 14:40 | RADIOLOGY REPORT ---
PROCEDURE: MR MRI LUMBAR SPINE Indication: SECONDARY MALIGNANT NEOPLASM OF BONE MARROW COMPARISON: None TECHNIQUE: Multiplanar multisequence images of the the lumbar spine are obtained. FINDINGS: For the purpose of this examination, there are 5 lumbar vertebral body types counting from the lumbosacral junction. The lumbar vertebral body heights are maintained. Moderate multilevel disc space narrowing and desiccation most pronounced at L3-4. Conus terminates at the L1-2 disc space level. Lumbar levocurvature. There are numerous T1 and T2 dark lesions throughout the lumbar spine, sacrum and bilateral iliac bones. Many of these demonstrate enhancement including L1 lesion measuring 2 cm, L5 lesion measuring 6 mm, S1 lesion measuring 8 mm, L4 lesion measuring 12 mm, L2 lesion measuring 10 mm, right iliac lesion measuring 11 mm, left iliac lesion measuring 22 mm. Right sacral lesion measuring 2.4 cm. Left sacral lesion measuring 2.6 cm. There is associated perilesional edema especially involving the L1 and iliac lesions T12-L1: 2 mm disc protrusion. Mild facet and flavum hypertrophy. No spinal canal, neural foraminal stenosis. L1-2: 2 mm disc protrusion. Mild facet and flavum hypertrophy. No spinal canal, neural foraminal stenosis. L2-3: Tiny disc protrusion. Mild facet and flavum hypertrophy. No spinal canal, neural foraminal stenosis. L3-4: 3 mm disc protrusion. Mild facet and flavum hypertrophy. No spinal canal stenosis. Moderate right and shqm-ge-mybhetka left neural foraminal stenosis. L4-5: 2 mm disc protrusion. Xwon-[id number]-sgoqjgpg facet and flavum hypertrophy. No spinal canal stenosis. Pbuj-pv-imdjqogh left and mild right neural foraminal stenosis. L5-S1: Tiny disc protrusion. Wnsm-ru-lnsozlty facet and flavum hypertrophy. Mild bilateral neural foraminal stenosis IMPRESSION: Multiple lumbar/sacral /iliac lesions that demonstrate enhancement consistent with metastatic disease / malignancy. The largest lesions include 2 cm L1 lesion, left iliac lesion measuring 22 mm, right iliac lesion measuring 11 mm, right sacral lesion measuring 2.4 cm and left sacral lesion measuring 2.6. These could represent metastatic lesions from the patient's known history of breast carcinoma. Moderate lumbar degenerative disc disease. No high-grade spinal canal stenosis.
--- NOTE | 2025-06-03 14:41 | RADIOLOGY REPORT ---
CLINICAL HISTORY: SECONDARY MALIGNANT NEOPLASM OF BONE MARROW. TECHNIQUE: Multi sequence multi planar MRI images of the thoracic spine were obtained prior to and after the uneventful administration of 15 mL Clariscan contrast. COMPARISON: CT chest dated 05/25/2025. FINDINGS: Numerous sclerotic lesions throughout the thoracic spine and visualized portions of the upper lumbar spine demonstrating T1 and T2 hypointense signal, corresponding to the lesion seen on recent CT chest exam and consistent with sclerotic metastases. Many of the lesions demonstrate perilesion al edema and surrounding postcontrast enhancement consistent with active metastatic disease. No visualized extension of disease into the paraspinal soft tissues or epidural extension of disease. No pathologic fracture demonstrated. Vertebral body alignment is within normal limits. Vertebral body heights are maintained. Posterior elements are intact. No evidence of acute fracture. Multilevel disc desiccation. No significant spinal canal stenosis or neural foraminal stenosis in the thoracic spine. Spinal cord is normal in signal intensity and morphology. No significant paraspinal soft tissue abnormality or abnormal enhancement. Partially visualized bilateral pleural effusions. IMPRESSION: 1. Numerous sclerotic metastases in the thoracic spine and visualized portions of the upper lumbar spine with associated perilesional edema and adjacent areas of enhancement consistent with active metastatic disease. 2. No pathologic fracture. No evidence for epidural or paraspinal extension of disease. 3. Additional findings as described above.
--- NOTE | 2025-06-03 17:41 | CARDIOLOGY REPORT ---
APPROVED REPORT EXAM: Comprehensive 2D, Doppler, and color-flow Echocardiogram. 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 3.30 cm IVC 15.86 mm FS (%) 39.0 % SV 52.6 ml M-Mode Dimensions MV EPSS 0.8 (<0.5cm) Aortic Valve AoV Peak Ricky. 144.7 cm/s AoV VTI 23.0 cm AO Peak GR. 8.4 mmHg AO Mean GR. 4 mmHg LVOT VTI 19.54 cm LVOT Peak Ricky. 110.0 cm/s DAVID (VMAX) 2.97 cm2 DAVID (VTI) 3.32 cm2 Mitral Valve MV E Velocity 77.5 cm/s MV DECEL TIME 174 ms MV A Velocity 99.7 cm/s MV PHT 49 ms E/A Ratio 0.8 MVA (PHT) 4.52 cm2 Tricuspid Valve TR P. Velocity 288 cm/s RAP ESTIMATE 10 mmHg TR Peak Gr. 33 mmHg RVSP 43 mmHg LEFT VENTRICLE Normal LV size and wall thickness. Overall systolic function is normal. LVEF is 65%. RIGHT VENTRICLE RV appears normal in size and contractility. RVSP is estimated at 43 mmHG. ATRIA The left atrium size is normal. AORTIC VALVE Trileaflet AV appears sclerotic without stenosis. No insufficiency. MITRAL VALVE The mitral valve is normal in structure. Trace mitral regurgitation. TRICUSPID VALVE The tricuspid valve is normal in structure. Trace tricuspid regurgitation. PULMONIC VALVE The pulmonary valve is normal in structure. Trace pulmonic insufficiency. GREAT VESSELS The aortic root is normal in size. The ascending aorta is normal in size. The IVC is normal in size and collapses >50% with inspiration. PERICARDIUM There is no pericardial effusion. Other Information Study Quality: Adequate Conclusion Normal LV size and wall thickness. Overall systolic function is normal. LVEF is 65%. RV appears normal in size and contractility. RVSP is estimated at 43 mmHG. The left atrium size is normal. Trileaflet AV appears sclerotic without stenosis. No insufficiency. The mitral valve is normal in structure. Trace mitral regurgitation. The tricuspid valve is normal in structure. Trace tricuspid regurgitation. The pulmonary valve is normal in structure. Trace pulmonic insufficiency. There is no pericardial effusion.
[2025-06-04 11:11] LABS: ALKALINE PHOSPHATASE, S 126 IU/L (49-135)
[2025-06-07 05:09] LABS: BONE FRACTION: 47 % (14-68); INTESTINAL FRAC: 6 % (0-18); LIVER FRACTION: 47 % (18-85)
== END 2025-06-03 23:59 | disposition home or self-care (01) ==
LOC: CARD DIAG 08:29
PROVIDERS: ATTEND Student in an Organized Health Care Education/Training Program
DX: C79.52 Secondary malignant neoplasm of bone marrow (principal); M47.817 Spondylosis without myelopathy or radiculopathy, lumbosacral region; M51.27 Other intervertebral disc displacement, lumbosacral region; M48.07 Spinal stenosis, lumbosacral region; M51.369 Other intervertebral disc degeneration, lumbar region without mention of lumbar back pain or lower extremity pain; G95.89 Other specified diseases of spinal cord; M47.812 Spondylosis without myelopathy or radiculopathy, cervical region; M50.323 Other cervical disc degeneration at C6-C7 level; M48.02 Spinal stenosis, cervical region; M43.12 Spondylolisthesis, cervical region; I35.8 Other nonrheumatic aortic valve disorders
CPT/HCPCS: 36415; 72156; 72157; 72158; 76882; 82310; 84075; 84080; 85025; 85651; 93306; A9575

== ENCOUNTER 2025-06-16 14:03 | Day surgery (SDC) | payer BC ==
[~2025-06-16 14:03] MED LIST changes: -GADOTERATE MEGLUMINE 7.5 MMOL/15 ML VIAL IV ONE
[2025-06-16 14:18] VITALS: BP 111/90; PULSE 112; RESP 16; TEMP 97.9; O2SAT 96
[2025-06-16] MEDS ORDERED: LOSA50TA64 PO (14:26)
[2025-06-16] MEDS ORDERED: VENL75CA61 PO (14:26)
[2025-06-16] MEDS ORDERED: ROSU10TA98 PO (14:26)
[2025-06-16] MEDS ORDERED: ALBU10.7 (14:26)
[2025-06-16] MEDS ORDERED: BUDE10.26 (14:26)
[2025-06-16 15:15] VITALS: BP 115/92; PULSE 111; RESP 16; O2SAT 95
[2025-06-16 15:45] VITALS: BP 124/91; PULSE 93; RESP 16; O2SAT 96
[2025-06-16 16:04] VITALS: BP 120/88; PULSE 92; RESP 16; O2SAT 96
--- NOTE | 2025-06-16 16:07 | RADIOLOGY REPORT ---
CHEST RADIOGRAPH INDICATION: s/p left thora TECHNIQUE: Single frontal view of the chest was obtained COMPARISON: None FINDINGS: Lines and Tubes: None Lungs: Diffuse interstitial prominence. Gradient opacification of bilateral lower lung zones with obscuration of bilateral hemidiaphragm. No pneumothorax. Cardiomediastinal contours: Unremarkable Bones: No acute osseous abnormality. Surgical clips are noted over the left axilla. IMPRESSION: Moderate left small to moderate Right-sided pleural effusions and associated atelectasis. Underlying bibasilar pneumonia can not be excluded. Pulmonary vascular congestion.
--- NOTE | 2025-06-16 16:13 | PROGRESS NOTE ---
H&P - Interval Note Providers to CC ~ Patient examined and condition: Yes Interval changes as follows: 59 yo female patient with originally R breast cancer. B mastectomy. Now with bone mets and B L>R pleural effusions. Here for thoracentesis. No change in H/P from prior exam 06/08/25. Risks benefits alt of thoracentesis Left side d/w pt and spouse and pt wishes to proceed. Local only. LUIS NAVA MD Jun 16, 2025 16:13
--- NOTE | 2025-06-16 16:14 | PROGRESS NOTE ---
Progress Note - Angio Providers to CC ~ Angio Progress Note: R thoracentesis performed with US guidance. Total of 500cc of clear yellow fluid removed without complication. EBL zero, CXR post procedure with no PTX or residual effusion on Left. Dictated. LUIS NAVA MD Jun 16, 2025 16:14
[2025-06-16 16:25] VITALS: BP 118/86; PULSE 94; RESP 16; O2SAT 96
--- NOTE | 2025-06-16 18:32 | RADIOLOGY REPORT ---
Ultrasound-guided left thoracentesis Clinical information: Shortness of breath, pleural effusion, breast cancer with pleural effusions PRE-PROCEDURE DIAGNOSIS: Small to moderate left pleural effusion and tiny right pleural effusion POST-PROCEDURE DIAGNOSIS: Same Complications: None ESTIMATED BLOOD LOSS: None PROCEDURE: The nature, alternatives, and risks were discussed with the patient and informed consent was disclosed. The patient was positioned upright and ultrasound was used to examine the left posterior chest. An appropriate position was marked at the skin. After sterile preparation and draping, 1% Lidocaine 10 mL subcutaneous anesthesia was administered. The left pleural space was entered with a 5 Portuguese Yueh catheter and approximately 500 mL of slightly opaque yellow fluid was removed. Sample was sent to lab including cytology. The patient tolerated the procedure well without apparent acute complications. FINDINGS: Successful left thoracentesis removing 500 cc of fluid, sent to laboratory for analysis including cytology. I IMPRESSION: 1. Successful diagnostic and therapeutic left thoracentesis.
== END 2025-06-16 16:30 | disposition home or self-care (01) ==
LOC: SSTAY O 14:03
PROVIDERS: ATTEND Radiology Diagnostic Radiology
DX: J90 Pleural effusion, not elsewhere classified (principal); J98.11 Atelectasis; R09.89 Other specified symptoms and signs involving the circulatory and respiratory systems; I10 Essential (primary) hypertension; K21.9 Gastro-esophageal reflux disease without esophagitis; Z79.899 Other long term (current) drug therapy; Z90.13 Acquired absence of bilateral breasts and nipples; Z98.890 Other specified postprocedural states
CPT/HCPCS: 32555; 71045; C1729